=== PATIENT | male | born 1950 | race Caucasian/White ===

== ENCOUNTER 2021-01-15 20:21 | Inpatient (IN) | payer MEDICARE ==
[2021-01-15 21:08] LABS: #Monocytes 1.4 10x3/uL (0.0-1.1); #Neutrophils 12.5 10x3/uL (1.5-8.4); %Basophils 0.2 % (0.0-2.0); %Eosinophils 0.1 % (0.0-6.0); %Lymphocytes 8.9 % (18.0-47.0); %Monocytes 8.9 % (0.0-10.0); %Neutrophils 81.2 % (40.0-75.0); Hemoglobin 14.5 g/dL (13.5-17.5); Mean Corpuscular HGB CONC 33.3 g/dL (32.0-36.0); Mean Corpuscular Hemoglobin 29.3 pg (27.0-33.0); Mean Corpuscular Volume 87.9 fl (81.2-95.1); Mean Platelet Volume 11.7 fl (7.4-10.4); Platelet Count 150 10x3/uL (150-450); RBC Distribution Width 12.8 % (11.5-14.5); Red Blood Cell (RBC) Count 4.95 10x6/uL (4.32-5.72); White Blood Cell (WBC) Count 15.4 10x3/uL (3.5-10.5)
[2021-01-15 21:18] LABS: ALT (SGPT) 31 U/L (8-55); AST (SGOT) 31 U/L (5-34); Albumin 3.6 g/dL (3.4-4.8); Alkaline Phosphatase 68 U/L (40-110); Anion Gap 14 mmol/L (10-20); BUN (Urea Nitrogen) 25 mg/dL (8.4-25.7); Bilirubin, Total 2.1 mg/dL (0.2-1.2); Calc. Creatinine Clearance 0 mL/min (70-130); Calcium 9.1 mg/dL (7.8-10.44); Carbon Dioxide 27 mmol/L (23-31); Chloride 94 mmol/L (98-107); Globulin 3.9 g/dL (2.4-3.5); Glucose 263 mg/dL (83-110); Potassium 3.7 mmol/L (3.5-5.1); Protein, Total 7.5 g/dL (5.8-8.1); Sodium 131 mmol/L (136-145)
[2021-01-15] MEDS ORDERED: cefTRIAXone\\ROCEPHIN 2 GM VIAL ONE (21:25)
[2021-01-15 21:31] LABS: Band 7 % (5-11); Lymphocytes 4 % (21-51); Monocytes 9 % (0-10); Reactive Lymphocytes 2 % (0-10)
[2021-01-15 21:32] LABS: Neutrophil 78 % (42-75); RBC Morphology Normal
[2021-01-15 21:33] LABS: Large Platelets SLIGHT
[2021-01-15 21:38] LABS: Bilirubin Neg (Negative); Blood, Urine 25 (Negative); Clarity Cloudy (Clear); Glucose, Urine (Dipstick) >=1000 mg/dL (Negative); Ketone, Urine 5 mg/dL (Negative); Leukocyte Negative (Negative); Nitrite Negative (Negative); Protein, Urine (Dipstick) 30 mg/dl (Neg-Trace); Urobilinogen Normal mg/dL (Less than 2)
[2021-01-15 21:47] LABS: Bacteria/HPF Rare-Few HPF (None Seen); Oval Fat Bodies/HPF 1+ HPF (None Seen); Renal Epithelial 0-3 HPF (None Seen); Squamous Epithelial 0-3 HPF (0-3)
[2021-01-15] MEDS ORDERED: Azithromycin 500 MG VIAL ONE (22:03)
[2021-01-15] MEDS ORDERED: Ventolin HFA Inhaler 60 PUFF INHALER ONE (22:08)
[2021-01-15] MEDS ORDERED: Dextrose 50% Abboject 50 ML SYRINGE SLOW IVP PRN (22:19)
[2021-01-15] MEDS ORDERED: Senokot S 8.6-50 MG TAB PO PRN (22:19)
[2021-01-15] MEDS ORDERED: HYDROcodone/Acetaminophen 5/325 mg Tablet PO PRN ×2 (22:19)
[2021-01-15] MEDS ORDERED: Zolpidem Tartrate 5 MG TAB PO PRN (22:19)
[2021-01-15] MEDS ORDERED: Ondansetron PF 4 MG/2 ML Vial IVP PRN (22:19)
[2021-01-15] MEDS ORDERED: Calcium Carbonate 500 MG ChewTAB PO PRN (22:19)
[2021-01-15] MEDS ORDERED: Dextrose 5% in Water 1,000 ML IV PRN (22:19)
[2021-01-15 22:25] LABS: SARS-CoV-2 NAA Rapid Test Not Detected (NotDetected)
[2021-01-15] MEDS ORDERED: Tamsulosin HCl 0.4 MG CAP PO SCH (22:45)
[2021-01-15 23:21] VITALS: BMI 29.7
[2021-01-15 23:46] LABS: Lactic Acid 1.5 mmol/L (0.5-2.2)
[2021-01-15] MEDS: Sodium Chloride 0.9% 1,000 ML IV SCH (23:46)
[2021-01-15] MEDS: Tamsulosin HCl 0.4 MG CAP PO SCH (23:49)
[2021-01-16 02:47] LABS: Legionella Urinary Ag Negative (Negative); Strep pneumo Urine Ag NEGATIVE (NEGATIVE)
[2021-01-16 06:23] LABS: #Monocytes 1.1 10x3/uL (0.0-1.1); #Neutrophils 9.9 10x3/uL (1.5-8.4); %Basophils 0.2 % (0.0-2.0); %Lymphocytes 8.2 % (18.0-47.0); %Monocytes 9.2 % (0.0-10.0); %Neutrophils 81.7 % (40.0-75.0); Hemoglobin 12.4 g/dL (13.5-17.5); Mean Corpuscular HGB CONC 33.3 g/dL (32.0-36.0); Mean Corpuscular Hemoglobin 29.6 pg (27.0-33.0); Mean Corpuscular Volume 88.8 fl (81.2-95.1); Mean Platelet Volume 11.3 fl (7.4-10.4); Platelet Count 124 10x3/uL (150-450); RBC Distribution Width 12.6 % (11.5-14.5); Red Blood Cell (RBC) Count 4.19 10x6/uL (4.32-5.72); White Blood Cell (WBC) Count 12.1 10x3/uL (3.5-10.5)
[2021-01-16 06:33] LABS: ALT (SGPT) 30 U/L (8-55); AST (SGOT) 29 U/L (5-34); Albumin 2.8 g/dL (3.4-4.8); Alkaline Phosphatase 55 U/L (40-110); Anion Gap 17 mmol/L (10-20); BUN (Urea Nitrogen) 23 mg/dL (8.4-25.7); Bilirubin, Total 1.3 mg/dL (0.2-1.2); Calc. Creatinine Clearance 90 mL/min (70-130); Calcium 8.1 mg/dL (7.8-10.44); Carbon Dioxide 20 mmol/L (23-31); Chloride 101 mmol/L (98-107); Globulin 3.3 g/dL (2.4-3.5); Glucose 129 mg/dL (83-110); Potassium 3.3 mmol/L (3.5-5.1); Protein, Total 6.1 g/dL (5.8-8.1); Sodium 135 mmol/L (136-145)
[2021-01-16] MEDS ORDERED: Potassium Chloride 20 MEQ TAB PO SCH (08:00)
[2021-01-16] MEDS: Enoxaparin Sodium 40 MG/0.4 ML SYRINGE SC SCH (08:22)
[2021-01-16] MEDS: Alogliptin 6.25 MG TAB PO SCH (08:23)
[2021-01-16] MEDS: Famotidine 20 MG TAB PO SCH ×2 (08:23→20:19)
[2021-01-16] MEDS: HumaLOG 300 UNITS/3 ML VIAL SC PRN ×2 (11:54→23:00)
[2021-01-16] MEDS: Sodium Chloride 0.9% 1,000 ML IV SCH (11:54)
[2021-01-16] MEDS: cefTRIAXone\\ROCEPHIN 2 GM in Sodium Chloride 0.9% 100 ML IVPB SCH (20:18)
[2021-01-16] MEDS: Atorvastatin Calcium 20 MG TAB PO SCH (20:19)
[2021-01-17] MEDS: Sodium Chloride 0.9% 1,000 ML IV SCH ×2 (00:57→16:49)
[2021-01-17 06:34] LABS: #Eosinphils 0.1 10x3/uL (0.0-0.5); #Neutrophils 8.4 10x3/uL (1.5-8.4); %Basophils 0.2 % (0.0-2.0); %Eosinophils 0.5 % (0.0-6.0); %Lymphocytes 13.2 % (18.0-47.0); %Monocytes 8.7 % (0.0-10.0); Hemoglobin 11.7 g/dL (13.5-17.5); Mean Corpuscular Hemoglobin 29.6 pg (27.0-33.0); Mean Corpuscular Volume 89.9 fl (81.2-95.1); Mean Platelet Volume 10.7 fl (7.4-10.4); Platelet Count 137 10x3/uL (150-450); RBC Distribution Width 12.7 % (11.5-14.5); Red Blood Cell (RBC) Count 3.95 10x6/uL (4.32-5.72)
[2021-01-17 06:39] LABS: Anion Gap 15 mmol/L (10-20); BUN (Urea Nitrogen) 25 mg/dL (8.4-25.7); Calc. Creatinine Clearance 96 mL/min (70-130); Carbon Dioxide 22 mmol/L (23-31); Chloride 104 mmol/L (98-107); Potassium 3.6 mmol/L (3.5-5.1); Sodium 137 mmol/L (136-145)
[2021-01-17 06:40] LABS: Calcium 7.9 mg/dL (7.8-10.44); Glucose 104 mg/dL (83-110)
[2021-01-17] MEDS: Acetaminophen 325 MG TAB PO PRN ×3 (06:40→20:54)
[2021-01-17] MEDS: HumaLOG 300 UNITS/3 ML VIAL SC PRN ×4 (07:17→20:55)
[2021-01-17] MEDS: Famotidine 20 MG TAB PO SCH ×2 (08:34→20:54)
[2021-01-17] MEDS: Alogliptin 6.25 MG TAB PO SCH (08:35)
[2021-01-17] MEDS: Enoxaparin Sodium 40 MG/0.4 ML SYRINGE SC SCH (08:35)
[2021-01-17] MEDS: cefTRIAXone\\ROCEPHIN 2 GM in Sodium Chloride 0.9% 100 ML IVPB SCH (20:53)
[2021-01-17] MEDS: Atorvastatin Calcium 20 MG TAB PO SCH (20:54)
[2021-01-17] MEDS: Tamsulosin HCl 0.4 MG CAP PO SCH (20:55)
[2021-01-18] MEDS: Sodium Chloride 0.9% 1,000 ML IV SCH ×2 (03:58→18:23)
[2021-01-18 04:32] LABS: Anion Gap 16 mmol/L (10-20); BUN (Urea Nitrogen) 20 mg/dL (8.4-25.7); Calc. Creatinine Clearance 113 mL/min (70-130); Calcium 7.9 mg/dL (7.8-10.44); Carbon Dioxide 18 mmol/L (23-31); Chloride 110 mmol/L (98-107); Glucose 126 mg/dL (83-110); Potassium 3.8 mmol/L (3.5-5.1); Sodium 140 mmol/L (136-145)
[2021-01-18 04:54] LABS: #Eosinphils 0.1 10x3/uL (0.0-0.5); #Monocytes 0.8 10x3/uL (0.0-1.1); #Neutrophils 7.4 10x3/uL (1.5-8.4); %Basophils 0.3 % (0.0-2.0); %Eosinophils 1.3 % (0.0-6.0); %Lymphocytes 13.7 % (18.0-47.0); %Monocytes 8.4 % (0.0-10.0); %Neutrophils 75.2 % (40.0-75.0); Hemoglobin 12.2 g/dL (13.5-17.5); Mean Corpuscular Volume 90.7 fl (81.2-95.1); Mean Platelet Volume 10.8 fl (7.4-10.4); Platelet Count 145 10x3/uL (150-450); RBC Distribution Width 12.7 % (11.5-14.5); White Blood Cell (WBC) Count 9.8 10x3/uL (3.5-10.5)
[2021-01-18] MEDS: Enoxaparin Sodium 40 MG/0.4 ML SYRINGE SC SCH (08:32)
[2021-01-18] MEDS: Alogliptin 6.25 MG TAB PO SCH (08:32)
[2021-01-18] MEDS: Famotidine 20 MG TAB PO SCH ×2 (08:32→20:45)
[2021-01-18] MEDS: HumaLOG 300 UNITS/3 ML VIAL SC PRN ×3 (13:20→22:08)
[2021-01-18] MEDS: Guaifenesin DM 100-10/5 ML UDCUP PO PRN ×2 (13:21→18:23)
[2021-01-18] MEDS: Benzonatate 100 MG CAP PO PRN ×2 (13:21→18:23)
[2021-01-18] MEDS: Atorvastatin Calcium 20 MG TAB PO SCH (20:45)
[2021-01-18] MEDS: Tamsulosin HCl 0.4 MG CAP PO SCH (20:45)
[2021-01-19 06:29] LABS: #Eosinphils 0.1 10x3/uL (0.0-0.5); #Monocytes 0.8 10x3/uL (0.0-1.1); #Neutrophils 7.2 10x3/uL (1.5-8.4); %Basophils 0.1 % (0.0-2.0); %Lymphocytes 15.6 % (18.0-47.0); %Monocytes 7.8 % (0.0-10.0); %Neutrophils 74.5 % (40.0-75.0); Hemoglobin 11.7 g/dL (13.5-17.5); Mean Corpuscular HGB CONC 33.3 g/dL (32.0-36.0); Mean Corpuscular Hemoglobin 29.8 pg (27.0-33.0); Mean Corpuscular Volume 89.3 fl (81.2-95.1); Mean Platelet Volume 10.3 fl (7.4-10.4); Platelet Count 160 10x3/uL (150-450); RBC Distribution Width 12.6 % (11.5-14.5); Red Blood Cell (RBC) Count 3.93 10x6/uL (4.32-5.72); White Blood Cell (WBC) Count 9.6 10x3/uL (3.5-10.5)
[2021-01-19 06:38] LABS: Anion Gap 14 mmol/L (10-20); BUN (Urea Nitrogen) 15 mg/dL (8.4-25.7); Calc. Creatinine Clearance 127 mL/min (70-130); Calcium 7.8 mg/dL (7.8-10.44); Carbon Dioxide 19 mmol/L (23-31); Chloride 109 mmol/L (98-107); Glucose 175 mg/dL (83-110); Potassium 3.8 mmol/L (3.5-5.1); Sodium 138 mmol/L (136-145)
[2021-01-19 08:28] VITALS: TEMP 97
[2021-01-19] MEDS ORDERED: Empagliflozin 10 MG TAB PO SCH (09:00)
[2021-01-19] MEDS: Alogliptin 6.25 MG TAB PO SCH (09:13)
[2021-01-19] MEDS: Famotidine 20 MG TAB PO SCH (09:14)
[2021-01-19] MEDS: Enoxaparin Sodium 40 MG/0.4 ML SYRINGE SC SCH (09:14)
[2021-01-19] MEDS: HumaLOG 300 UNITS/3 ML VIAL SC PRN ×2 (09:15→13:51)
[2021-01-19 12:01] VITALS: BP 126/72
== END 2021-01-19 14:40 | disposition home or self-care (01) | DRG 872 ==
LOC: CSHERS 20:21 → CSHTELE 23:06
PROVIDERS: ADMIT Student in an Organized Health Care Education/Training Program; ATTEND Internal Medicine
DX: A41.9 Sepsis, unspecified organism (principal); N41.0 Acute prostatitis; N17.9 Acute kidney failure, unspecified; E78.5 Hyperlipidemia, unspecified; I10 Essential (primary) hypertension; I25.10 Atherosclerotic heart disease of native coronary artery without angina pectoris; Z95.1 Presence of aortocoronary bypass graft; N40.0 Benign prostatic hyperplasia without lower urinary tract symptoms; E11.65 Type 2 diabetes mellitus with hyperglycemia; Z79.84 Long term (current) use of oral hypoglycemic drugs; Z20.822 Contact with and (suspected) exposure to COVID-19; N18.2 Chronic kidney disease, stage 2 (mild); I12.9 Hypertensive chronic kidney disease with stage 1 through stage 4 chronic kidney disease, or unspecified chronic kidney disease; E11.22 Type 2 diabetes mellitus with diabetic chronic kidney disease
CPT/HCPCS: 0240U; 36415; 36416; 71045; 74177; 76856; 80048; 80053; 81003; 81015; 83605; 85025; 87040; 87077; 87086; 87149; 87186; 87449; 87899; 93005; 94664; 94760; 96365; 96367; J0456; J0696; J1650; J1815; J1956; J3490; J7050